=== PATIENT | male | born 1970 | race Caucasian/White ===

== ENCOUNTER 2022-05-08 14:38 | Outpatient (RCR) | payer MEDICARE, SELFPAY ==
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
== END 2022-05-08 14:40 | disposition home or self-care (01) ==
LOC: PT 14:38
PROVIDERS: PCP Family Medicine; Visit Provider Family Medicine
DX: S06.9XAA Unspecified intracranial injury with loss of consciousness status unknown, initial encounter (principal); G40.909 Epilepsy, unspecified, not intractable, without status epilepticus; I10 Essential (primary) hypertension; F32.A Depression, unspecified
CPT/HCPCS: 97163

== ENCOUNTER → 2022-06-12 14:38 | Outpatient (CLI) | payer MEDICARE, SELFPAY ==
--- NOTE | 2022-06-12 14:39 | MR_ITS ---
FINAL REPORT CLINICAL HISTORY: CVA/seizures 1993 pt stated had one 2-3 months ago FINDINGS: Multiplanar MR imaging of the brain was performed without contrast. There is moderate atrophy. There are multifocal areas of encephalomalacia consistent with multifocal chronic infarcts. The largest area of encephalomalacia is in the left parietal lobe. The other areas of encephalomalacia are in the bilateral frontal lobes and anterior left temporal lobe. There is no evidence of intracranial hemorrhage or mass. The ventricular size is normal. There is no evidence of shift of the midline structures. No abnormal extra-axial fluid collection is identified. No area of abnormal restricted diffusion is identified. Normal major vessel vascular flow voids are seen. IMPRESSION: Moderate atrophy with multifocal areas of encephalomalacia consistent with chronic infarcts. Reviewed, Interpreted and Dictated by Darrius Patricio III, MD Transcribed by Carla Costa Authenticated and . [facility]
== END ==
LOC: RAD 14:39
PROVIDERS: PCP Family Medicine; Visit Provider Specialist
DX: G40.909 Epilepsy, unspecified, not intractable, without status epilepticus (principal)
CPT/HCPCS: 70551; 94762

== ENCOUNTER → 2022-06-13 08:46 | Outpatient (CLI) | payer MEDICARE, SELFPAY ==
[2022-06-13 09:26] LABS: Basophils # 0.1 K/mm3 (0-0.2); Basophils % 0.9 % (0.1-2.0); Eosinophils # 0.1 K/mm3 (0.0-0.4); Eosinophils % 1.7 % (0.1-12.0); Hematocrit 43.6 % (42.0-52.0); Hemoglobin 13.7 g/dL (14.1-18.0); Lymphocytes # 1.2 K/mm3 (0.7-4.5); Lymphocytes % 17.5 % (10-50); Mean Corpuscular HGB Conc 31.4 g/dL (31.8-35.4); Mean Corpuscular Hemoglobin 32.3 pg (27.0-31.2); Mean Corpuscular Volume 103.1 fl (80-94); Mean Platelet Volume 8.4 fl (7.4-10.4); Monocytes # 0.4 K/mm3 (0.1-1.0); Monocytes % 5.2 % (1.7-9.3); Neutrophils # 5.1 K/mm3 (1.8-7.8); Neutrophils % 74.7 % (37.0-80.0); Platelet Count 314 K/mm3 (142-424); Red Blood Count 4.22 M/mm3 (4.60-6.20); Red Cell Distribution Width 15.2 % (11.5-17.5); White Blood Count 6.9 K/mm3 (4.8-10.8)
[2022-06-13 09:49] LABS: Alanine Aminotransferase 19 U/L (12-78); Albumin Level 4.4 g/dl (3.5-5.0); Albumin/Globulin Ratio 1.8 (1.1-1.8); Alkaline Phosphatase 74 U/L (38-126); Aspartate Amino Transferase 28 U/L (17-59); Bilirubin,Total 0.3 mg/dl (0.2-1.3); Blood Urea Nitrogen 13 mg/dl (9-20); Calcium 8.8 mg/dl (8.4-10.2); Carbon Dioxide 29 mmol/L (22.0-30.0); Chloride 103 mmol/L (98-107); Chol/HDL Ratio 2.1 (1-3.5); Cholesterol 177 mg/dl (140-200); Estimated Glomerular Filt Rate 119 ml/min (>60); GFR (African American) 144 ML/MIN (>60); Globulin 2.4 g/dL (1.3-3.2); Glucose 108 mg/dl (74-100); HDL Cholesterol 85 mg/dl (40-60); Potassium 4.6 mmoL/L (3.5-5.1); Total Protein,Serum 6.8 g/dl (6.3-8.2); Triglycerides 121 mg/dl (30-150); VLDL Cholesterol 24 mg/dL (0-40)
[2022-06-13 09:53] LABS: Anion Gap 8.6 mEq/L (5-15); Sodium 136 mmol/L (136-145)
[2022-06-13 09:56] LABS: Carbamazepine (Tegretol) < 3.0 ug/ml (4.0-12.0)
[2022-06-13 10:01] LABS: Direct LDL Cholesterol 72.64 mg/dL (100-129)
[2022-06-13 10:20] LABS: Thyroid Stimulating Hormone 1.29 uIU/mL (0.465-4.68)
[2022-06-13 10:55] LABS: Vitamin B12 294 pg/mL (239-931)
[2022-06-13 10:56] LABS: Folate 6.27 ng/mL
[2022-06-16 00:05] LABS: Vitamin B1 129.7 nmol/L (66.5-200.0)
== END ==
PROVIDERS: PCP Family Medicine; Visit Provider Specialist
DX: G40.909 Epilepsy, unspecified, not intractable, without status epilepticus (principal); F10.10 Alcohol abuse, uncomplicated; G47.30 Sleep apnea, unspecified; F32.A Depression, unspecified; I10 Essential (primary) hypertension; S06.9XAA Unspecified intracranial injury with loss of consciousness status unknown, initial encounter
CPT/HCPCS: 36415; 80053; 80061; 80156; 80177; 82607; 82746; 84425; 84443; 85025

== ENCOUNTER → 2022-07-05 11:31 | Outpatient (CLI) | payer MEDICARE, SELFPAY ==
--- NOTE | 2022-07-05 11:35 | XR_ITS ---
FINAL REPORT CLINICAL HISTORY: Right hip pain following recent fall FINDINGS: AP and frog leg views of the right hip were obtained. There is no prior exam for comparison. There is no acute fracture or dislocation. There is advanced degenerative joint disease of the right hip. There is an oval radiodensity medial to the right femoral neck of uncertain etiology. This may be artifact on the patient or may be calcification within the soft tissues. IMPRESSION: No acute osseous abnormality of the right hip. If pain persists, CT is recommended. Advanced degenerative disc disease. Reviewed, Interpreted and Dictated by Crista Hassan MD Transcribed by Carla Costa Authenticated and [facility]
== END ==
PROVIDERS: PCP Family Medicine; Visit Provider Specialist
DX: G40.909 Epilepsy, unspecified, not intractable, without status epilepticus (principal); M25.551 Pain in right hip; S06.9XAA Unspecified intracranial injury with loss of consciousness status unknown, initial encounter
CPT/HCPCS: 73502